=== PATIENT | female | born 1970 | race Caucasian/White ===

== ENCOUNTER → 2025-04-13 08:33 | Outpatient (BNVA) | payer OTHER, SELFPAY | PROVIDERS: Visit Provider Podiatrist Foot & Ankle Surgery | DX: M25.572 Pain in left ankle and joints of left foot (principal); L90.5 Scar conditions and fibrosis of skin; M72.2 Plantar fascial fibromatosis; M20.42 Other hammer toe(s) (acquired), left foot | CPT/HCPCS: 73630 ==